=== PATIENT | female | born 1970 | race African-American/Black ===

== ENCOUNTER 2017-12-08 17:46 | Inpatient (IN) | payer MEDICARE, MEDICAID ==
[2017-12-08] MEDS ORDERED: Acetaminophen 500 MG TAB ONE (18:39)
[2017-12-08] MEDS ORDERED: Metoclopramide HCl 10 MG/2 ML VIAL ONE (19:35)
[2017-12-08] MEDS ORDERED: diphenhydrAMINE 50 MG/ML VIAL ONE (19:35)
--- NOTE | 2017-12-08 20:05 | CT ---
CT BRAIN NONCONTRAST: DATE: 12/08/17 TIME: 6:44 p.m. HISTORY: 47-year-old female with headache. COMPARISON: None available. FINDINGS: There is an old left lateral parietal solomon hole. There is a partially healed old left frontal bur hol e. No acute calvarial fracture or destructive osseous lesion. Bilateral tympanomastoid cavities and t he frontal, ethmoid, and sphenoid sinuses, are grossly clear. No evidence of acute intra-axial or ext ra-axial hemorrhage. No mass effect, midline shift, extra-axial fluid collection, or obstructive hydr ocephalus. Large, contiguous region of left parieto-occipitotemporal encephalomalacia in the left cer ebral hemisphere, and also involving a large portion of the left upper and mid frontal lobe. Associat ed ex vacuo dilation of the entire left lateral ventricle, especially the body, trigone, and occipita l horn. Mild ex vacuo dilation of third ventricle and mild ex vacuo right to left midline shift of th e third ventricle. No dilation of the right lateral ventricle or fourth ventricle. No acute intra-axi al hemorrhage. IMPRESSION: 1. No acute intracranial findings. 2. Large extensive regions of encephalomalacia and gliosis involving the majority of the left ce rebral hemisphere, from prior insult. 3. Two old left solomon holes. JOSE MARIA Turpin POS: [facility]
[2017-12-08 20:30] LABS: #Basophils 0.1 thou/uL (0.0-0.2); #Eosinphils 0.1 thou/uL (0.0-0.7); #Monocytes 0.7 thou/uL (0.11-0.59); #Neutrophils 4.3 thou/uL (1.40-6.50); %Eosinophils 1.2 % (0.0-10.0); %Lymphocytes 49.1 % (21.0-51.0); %Neutrophils 41.6 % (42.0-75.0); Hemoglobin 11.5 g/dL (12.0-16.0); Mean Corpuscular HGB CONC 30.6 g/dL (32.0-36.0); Mean Corpuscular Hemoglobin 25.1 pg (27.0-31.0); Mean Corpuscular Volume 82.2 fL (78.0-98.0); Platelet Count 283 thou/uL (130-400); RBC Distribution Width 17.7 % (11.5-14.5); Red Blood Cell (RBC) Count 4.58 mill/uL (4.20-5.40); White Blood Cell (WBC) Count 10.2 thou/uL (4.8-10.8)
[2017-12-08 20:49] LABS: Anion Gap 14 mmol/L (10-20); BUN (Urea Nitrogen) 17 mg/dL (7.0-18.7); Calc. Creatinine Clearance 0 mL/min (70-130); Calcium 9.2 mg/dL (7.8-10.44); Carbon Dioxide 28 mmol/L (22-29); Chloride 94 mmol/L (98-107); Estimated GFR-MDRD 48; Glucose 137 mg/dL (70-105); Potassium 4.1 mmol/L (3.5-5.1); Sodium 132 mmol/L (136-145)
[2017-12-08] MEDS ORDERED: methylPREDNISolone Sod Succ/PF 125 MG/2 ML VIAL ONE (23:30)
[2017-12-08] MEDS ORDERED: Magnesium Sulfate 2 GM/100 ML BAG ONE (23:30)
--- NOTE | 2017-12-09 00:09 | PDOC.FPRHP ---
- History of Present Illness Chief Complaint: headache History of Present Illness: This is a 47 yo F here for headache that has been occuring about 1 week. The patient has a significant PMH of previous strokes, cerebral aneurysm, residual hemiplegia, DM, GERD, and HLD. The patient states the headache has been intermittent, occurs "all over" her head, and is stabbing in nature. She states this headache is worse than previous headaches. She states the pain is a 5/10 and stated in the ED at its worse it is a 10/10 pain. The patient notes that she has had spots in her vision associated with the headache as well as nausea. She denies vomiting, fever, chest pain, SOB, abdominal pain, or diarrhea. The patient was somnolent on exam and therefore further hx was somewhat difficult to obtain. The patient is a resident at [facility]. ED Course: Patient given Mg, methylprednisolone, benadryl, tylenol, metoclopramide. LP attempted but unsuccessful. CT brain: 2 solomon holes, no acute bleed, evidence of encephalomalacia and gliosis. - Allergies/Adverse Reactions Allergies Allergy/AdvReac Type Severity Reaction Status Date / Time insulin lispro Allergy Verified 12/09/17 04:38 [From Humalog Mix] insulin lispro protamine Allergy Verified 12/09/17 04:38 [From Humalog Mix] - Home Medications Medication Instructions Recorded Confirmed Type Amlodipine Besylate/Benazepril 2 cap PO DAILY 12/09/17 12/09/17 History [amLODIPine Besylate/Benazepril] Atorvastatin Calcium [Lipitor] 1 tab PO HS 12/09/17 12/09/17 History DULoxetine HCl [Cymbalta] 1 cap PO HS 12/09/17 12/09/17 History Divalproex Sodium [Depakote ER] 1 tab PO BID 12/09/17 12/09/17 History Esomeprazole Magnesium [Nexium 2 cap PO DAILY 12/09/17 12/09/17 History 24Hr] Furosemide [Lasix] 1 tab PO DAILY 12/09/17 12/09/17 History Hydrochlorothiazide 1 tab PO DAILY 12/09/17 12/09/17 History Ibuprofen 2 tab PO Q4HR PRN 12/09/17 12/09/17 History Loratadine [Claritin] 1 tab PO DAILY 12/09/17 12/09/17 History Potassium Chloride 1 tab PO DAILY 12/09/17 12/09/17 History levETIRAcetam [Keppra] 1 tab PO BID 12/09/17 12/09/17 History metFORMIN HCl [Metformin HCl ER] 2 tab PO DAILY 12/09/17 12/09/17 History - History PMHx: cerebral aneurysm, acute gingivitis, GERD, bipolar, depression, vascular dementia, hx of stroke, DM, HTN PSHx: solomon hole FHx: non contributory Social: smokes cigarettes (unable to ascertain how many a day or for how long due to patient's somnolence), denies alcohol or drug use - Review of Systems General: denies: fever/chills, weight/appetite/sleep changes Eyes: reports: vision changes (spots in vision). denies: eye pain ENT: denies: nasal congestion, rhinorrhea Respiratory: denies: cough, shortness of breath Cardiovascular: denies: chest pain, palpitation, edema Gastrointestinal: reports: nausea. denies: vomiting, diarrhea, constipation, abdominal pain Genitourinary: denies: dysuria, polyuria Skin: denies: rashes, jaundice Musculoskeletal: denies: pain, swelling Neurological: reports: weakness (right sided). denies: syncope - Vital signs BP: 104/77 HR: 84 RR: 18 Tmax: 98.3 Pox: 99% on RA Wt: 72.6kg - Physical Exam -Constitutional: somnolent on exam, no distress HEENT: EOMI -HEENT: left pupil unreactive Chest: no-tender to palpation, no lesions Heart: RRR, normal S1/S2, no murmurs/rubs/gallops, pulses present, no edema Lungs: CTAB, no respiratory distress, good air movement, no wheezing Abdomen: soft, non-tender, bowel sounds present, no masses/distention -Musculoskeletal: right sided upper and lower extremity weakness; decreased sensation in right upper and lower extremity -Neurological: unable to complete full neuro exam due to patient somnolence sensation absent on right side Skin: no rash/lesions, no jaundice Heme/Lymphatic: no unusual bruising or bleeding, no petechia FMR H&P: Results - Labs Result Diagrams: 12/08/17 20:15 12/08/17 20:15 Lab results: WBC 10.2 thou/uL (4.8-10.8) 12/08/17 20:15 Hgb 11.5 g/dL (12.0-16.0) L 12/08/17 20:15 Hct 37.7 % (36.0-47.0) 12/08/17 20:15 MCV 82.2 fL (78.0-98.0) 12/08/17 20:15 Plt Count 283 thou/uL (130-400) 12/08/17 20:15 Neutrophils % 41.6 % (42.0-75.0) L 12/08/17 20:15 Sodium 132 mmol/L (136-145) L 12/08/17 20:15 Potassium 4.1 mmol/L (3.5-5.1) 12/08/17 20:15 Chloride 94 mmol/L (98-107) L 12/08/17 20:15 Carbon Dioxide 28 mmol/L (22-29) 12/08/17 20:15 BUN 17 mg/dL (7.0-18.7) 12/08/17 20:15 Creatinine 1.41 mg/dL (0.6-1.1) H 12/08/17 20:15 Glucose 137 mg/dL (70-105) H 12/08/17 20:15 Calcium 9.2 mg/dL (7.8-10.44) 12/08/17 20:15 FMR H&P: A/P - Problem List (1) Cerebral aneurysm Current Visit: Yes Status: Acute (2) Headache Current Visit: Yes Status: Acute Code(s): R51 - HEADACHE (3) Diabetes Current Visit: Yes Status: Acute Code(s): E11.9 - TYPE 2 DIABETES MELLITUS WITHOUT COMPLICATIONS (4) Hypertension Current Visit: Yes Status: Acute Code(s): I10 - ESSENTIAL (PRIMARY) HYPERTENSION (5) Hyperlipidemia Current Visit: Yes Status: Acute Code(s): E78.5 - HYPERLIPIDEMIA, UNSPECIFIED (6) GERD (gastroesophageal reflux disease) Current Visit: Yes Status: Acute Code(s): K21.9 - GASTRO-ESOPHAGEAL REFLUX DISEASE WITHOUT ESOPHAGITIS (7) Gingivitis Current Visit: Yes Status: Acute Code(s): K05.10 - CHRONIC GINGIVITIS, PLAQUE INDUCED (8) Bipolar 1 disorder Current Visit: Yes Status: Acute Code(s): F31.9 - BIPOLAR DISORDER, UNSPECIFIED (9) Depression Current Visit: Yes Status: Acute Code(s): F32.9 - MAJOR DEPRESSIVE DISORDER , SINGLE EPISODE, UNSPECIFIED (10) Vascular dementia Current Visit: Yes Status: Acute Code(s): F01.50 - VASCULAR DEMENTIA WITHOUT BEHAVIORAL DISTURBANCE (11) Hyponatremia Current Visit: Yes Status: Acute Code(s): E87.1 - HYPO-OSMOLALITY AND HYPONATREMIA (12) Normocytic anemia Current Visit: Yes Status: Acute Code(s): D64.9 - ANEMIA, UNSPECIFIED - Plan This is a 47 yo F here with headache occurring for the past 1 week, getting worked up to r/o SAH. Headache - likely 2/2 to tension headache, but unable to rule out SAH due to unsuccessful LP in the ED - CT brain: no acute bleed - Will schedule for IR guided LP tomorrow - consider CTA to visualize aneurysms - will need central line placed as IV access not sustainable for contrast - tylenol for pain - Will keep NPO until passed swallow study; if pass will start Consistent carb diet Hyponatremia - Na: 132 - Will give NS @ 125mls/hr - Will recheck BMP in AM Normocytic Anemia - Hb.5 - Will give ferrous sulfate 325 Qam - Will recheck CBC in AM Hx of cerebral aneurysm and stroke - Will obtain more information from fdc - consider CTA - pt on fall, swallow, seizure and stroke precautions DM - continue current home medications - ACHS checks HTN - continue home meds HLD - continue home meds Code status: FULL Dispo: pending results of LP Case discussed with Dr. Ruff FMR H&P: Upper Level - Pertinent history 47 yo female here for new onset DEL ROSARIO. Patient is poor historian and is difficult to rouse, but answers questions when we shake her arm. Patient history over the past couple weeks involves DEL ROSARIO that comes and goes, described as sharp sometimes , all over her head, 4 out of 10 pain scale. She has a medical history of aneurysm requiring 2 solomon holes. Also reports having 3 strokes in the past, but unable to describe how long ago. She reports current DEL ROSARIO episodes are different than in the past, but unable to further describe. She does not know who her doctors are. Apparently, patient is resident at [facility], PCP per paperwork is Jessica. Information shows medications and diagnosis history. No information about current clinical course. - Pertinent findings 104/77 HR: 84 Temp: 98.3 O2Sat:99% on RA RR: 18 Na: 132 Cr: 1.41 Glucose: 137 GEN: lethargic and difficult to rouse, Oriented x2 CARD: RRR, no m/g/r PULM: CTAB, nonlabored ABD: soft, nontender EXT: residual weakness on right side with contracture of right hand CT brain shows large extensive regions of encephalomalacia and gliosis involving the majority of the large cerebral hemisphere, no acute intracranial findings. Lumbar puncture: unable to be performed - Plan Date/Time: 12/09/17 0005 I, Albert Edgar DO, have evaluated this patient and agree with findings/plan as outlined by audit practice intern resident. Pertinent changes/additions are listed here. 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 Hypertension -appropriate range at this time -continue home meds Hemiplegia, right side -seems stable at this time per patient, however she is difficult to rouse and not fully participating in exam despite rousing; will reevaluate in the morning GRECIA -no baseline to confirm this is not simply her base level -will give LR at 125ml/hr -recheck in AM DMII, using insulin -continue home medications, Novolin N 18 units qHS, Novolin N 22u qAM -mild SSI -accuchecks qACHS Hx of TIA Bipolar disorder -continue home meds, depakote PVD Hyperlipidemia Attending Addendum - Attending Addendum Date/Time: 12/09/17 1107 I personally evaluated the patient and discussed the management with Dr. Orellana. I agree with the History, Examination, Assessment and Plan documented above with any addition or exceptions noted below. The patient was admitted with severe headache. She was initially quite somnolent but later this morning is awake and appears to be at baseline. She states her headache is improved. Getting LP today to rule out subarachnoid. Working with therapy. Getting UA to further evaluate altered mental status. Checking UDS.
[2017-12-09] MEDS ORDERED: Ondansetron ODT 4 MG TAB PO PRN (04:08)
[2017-12-09] MEDS ORDERED: Acetaminophen 325 MG TAB PO PRN (04:08)
[2017-12-09] MEDS ORDERED: Ondansetron HCl/PF 4 MG/2 ML Vial IVP PRN (04:08)
[2017-12-09] MEDS ORDERED: Ferrous Sulfate 325 MG TAB PO SCH (04:15)
[2017-12-09] MEDS: Sodium Chloride 0.9% 1,000 ML IV SCH ×2 (06:49→17:41)
[2017-12-09] MEDS ORDERED: Ibuprofen 200 MG TAB PO PRN (06:55)
[2017-12-09] MEDS ORDERED: HumaLOG 300 UNITS/3 ML VIAL SC PRN (08:35)
[2017-12-09] MEDS ORDERED: Dextrose 5% in Water 1,000 ML IV PRN (08:35)
[2017-12-09] MEDS ORDERED: Dextrose 50% Abboject 50 ML SYRINGE SLOW IVP PRN (08:35)
[2017-12-09] MEDS: metFORMIN XR 500 MG TAB PO SCH (08:52)
[2017-12-09] MEDS: Potassium Chloride 10 MEQ TAB PO SCH (08:52)
[2017-12-09] MEDS: Furosemide 20 MG TAB PO SCH (08:53)
[2017-12-09] MEDS: Amlodipine 5 mg/Benazepril 20 mg CAP PO SCH (08:53)
[2017-12-09] MEDS: Loratadine 10 MG TAB PO SCH (08:54)
[2017-12-09] MEDS: levETIRAcetam 500 MG TAB PO SCH ×2 (08:54→22:46)
[2017-12-09] MEDS ORDERED: Hydrochlorothiazide 25 MG TAB PO SCH (09:00)
[2017-12-09] MEDS ORDERED: ESOMEPRAZOLE MAGNESIUM PO SCH (09:00)
[2017-12-09] MEDS ORDERED: Lorazepam 0.5 MG TAB PO SCH (12:00)
[2017-12-09 12:36] VITALS: BMI 34.8
[2017-12-09] MEDS: NPH, Human Insulin Isophane 300 UNIT/3 ML VIAL SC SCH (13:55)
[2017-12-09 16:06] LABS: CSF Source CSF; Clarity Clear (Clear); RBC Count - Manual 2 /cumm (None Seen); Tube # 2; WBC/NonHematics Count - Manual 4 /cumm (0-5)
[2017-12-09 16:18] LABS: Color Of CSF Supernatant COLORLESS (Colorless); Tube # 3; Unspun CSF Color COLORLESS (Colorless)
[2017-12-09 16:19] LABS: CSF, Glucose 139 mg/dl (40-70); CSF, Protein 60 mg/dL (15-40)
[2017-12-09 16:57] LABS: CSF Source CSF; Clarity Clear (Clear); Tube # 4; WBC/NonHematics Count - Manual 1 /cumm (0-5)
[2017-12-09 16:58] LABS: RBC Count - Manual 12 /cumm (None Seen)
--- NOTE | 2017-12-09 18:06 | RAD ---
FLUOROSCOPIC GUIDED LUMBAR PUNCTURE: 12/09/17 HISTORY: Persistent headache rated as a 10 out of 10. FLUOROSCOPY: Total fluoroscopy time is 0.6 minutes and total dose is 162.5 uGy*m2. TECHNIQUE: After informed consent was obtained, the patient was placed on the fluoroscopy table in the prone pos ition. Limited fluoroscopic evaluation of the lumbar spine was performed. An area overlying the L2-3 level was marked, and the area was meticulously prepped and draped in the usual sterile fashion. Skin and subcutaneous tissues were infiltrated with buffered 1% lidocaine for local anesthesia. Utilizing fluoroscopic guidance, a 22 gauge spinal needle was advanced into the thecal sac. The inner stylet was removed, and return of clear cerebrospinal fluid was noted. Approximately 6 mL of clear c erebrospinal fluid was collected. An opening pressure of 9 cm of water was noted. The inner stylet was replaced. The needle was removed. Hemostasis was achieved with direct pressure. A dry sterile dressing was placed. The patient tolerated the procedure well without immediate complication. IMPRESSION: 1. Technically successful fluoroscopic guided lumbar puncture with 6 mL of clear cerebrospinal f luid collected. 2. Open spinal pressure of 9 cm of water was noted. 3. 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 Mild degenerative changes are seen in the spine. Bowel gas pattern is nonspecific. POS: [facility]
[2017-12-09] MEDS ORDERED: NPH, Human Insulin Isophane 300 UNIT/3 ML VIAL SC SCH ×2 (21:00→21:30)
[2017-12-09] MEDS: Atorvastatin Calcium 20 MG TAB PO SCH (22:46)
[2017-12-09] MEDS: DULoxetine 60 MG CAP PO SCH (22:46)
[2017-12-09] MEDS: Nicotine 21 MG PATCH TD SCH (22:47)
--- NOTE | 2017-12-10 06:42 | PDOC.FM ---
- Subjective Subjective: Pt. reports feeling better this morning. She reports a minor headache but denies N/V. - Objective MAR Reviewed: Yes Vital Signs & Weight: Vital Signs (12 hours) Temp Pulse Resp BP Pulse Ox 12/10/17 04:00 99 F 94 14 107/55 L 100 12/09/17 23:51 92 14 104/55 L 100 12/09/17 20:30 100 12/09/17 20:00 98.5 F 94 16 111/59 L 100 Weight Admit Weight 107.048 kg Weight 107.048 kg Result Diagrams: 12/08/17 20:15 12/10/17 07:12 <JonnyRolan - Last Filed: 12/10/17 09:28> - Objective Vital Signs & Weight: Vital Signs (12 hours) Temp Pulse Resp BP Pulse Ox 12/10/17 11:30 98.6 F 82 16 90/53 L 100 12/10/17 08:17 99 12/10/17 08:00 98.9 F 100 20 110/71 99 12/10/17 04:00 99 F 94 14 107/55 L 100 Weight Admit Weight 107.048 kg Weight 107.048 kg Result Diagrams: 12/08/17 20:15 12/10/17 07:12 <Adeline Ruff - Last Filed: 12/10/17 15:46> Phys Exam - Physical Examination Constitutional: NAD HEENT: moist MMs Neck: no JVD Respiratory: no wheezing, clear to auscultation bilateral Cardiovascular: RRR, no significant murmur Gastrointestinal: soft, non-tender, no distention Neurological: moves all 4 limbs Psychiatric: A&O x 3 <Rolan Fuller - Last Filed: 12/10/17 09:28> Dx/Plan (1) Bipolar 1 disorder Code(s): F31.9 - BIPOLAR DISORDER, UNSPECIFIED Status: Acute (2) Cerebral aneurysm Status: Acute (3) Depression Code(s): F32.9 - MAJOR DEPRESSIVE DISORDER, SINGLE EPISODE, UNSPECIFIED Status : Acute (4) Diabetes Code(s): E11.9 - TYPE 2 DIABETES MELLITUS WITHOUT COMPLICATIONS Status: Acute (5) GERD (gastroesophageal reflux disease) Code(s): K21.9 - GASTRO-ESOPHAGEAL REFLUX DISEASE WITHOUT ESOPHAGITIS Status: Acute (6) Gingivitis Code(s): K05.10 - CHRONIC GINGIVITIS, PLAQUE INDUCED Status: Acute (7) Headache Code(s): R51 - HEADACHE Status: Acute (8) Hyperlipidemia Code(s): E78.5 - HYPERLIPIDEMIA, UNSPECIFIED Status: Acute (9) Hypertension Code(s): I10 - ESSENTIAL (PRIMARY) HYPERTENSION Status: Acute (10) Hyponatremia Code(s): E87.1 - HYPO-OSMOLALITY AND HYPONATREMIA Status: Acute (11) Normocytic anemia Code(s): D64.9 - ANEMIA, UNSPECIFIED Status: Acute (12) Vascular dementia Code(s): F01.50 - VASCULAR DEMENTIA WITHOUT BEHAVIORAL DISTURBANCE Status: Acute - Plan Plan: This is a 47 yo female with a PMH of HTN, DM, HLD, Vascular dementia, cerebral aneurysm, GERD, Bipolar 1 Headache -Likely tension headache as CT brain is negative for acute bleed however the IR guided LP shows 2 RBCs in tube 2 and 12 in tube 4 which is concerning for a small bleed. We will correlate this information with clinical picture moving forward. We discussed pt care with Vanessa KING with neurosurgery and she recommended CTA of head w wo and would take a look at the case. We will be pending results. Hyponatremia -NA:132 on admission, we will trend. Normocytic anemia -Hb.5 on admission, MCV was 82.2. We will continue ferrous sulfate 325 qAM Hx of cerebral aneurysm and stroke -Will obtain CTA. Pt. is on fall, swallow, seizure, and stroke precautions DM -Continue home meds, ACHS accuchecks, SSI HTN -Continue home meds HLD -Continue home meds Code: Full Prophylaxis: none Family: none at bedside Disposition: NH in 1-2 days <Rolan Fuller - Last Filed: 12/10/17 09:28> (1) Cerebral aneurysm Status: Acute (2) Headache Code(s): R51 - HEADACHE Status: Acute (3) Diabetes Code(s): E11.9 - TYPE 2 DIABETES MELLITUS WITHOUT COMPLICATIONS Status: Acute (4) Hypertension Code(s): I10 - ESSENTIAL (PRIMARY) HYPERTENSION Status: Acute (5) Hyperlipidemia Code(s): E78.5 - HYPERLIPIDEMIA, UNSPECIFIED Status: Acute (6) GERD (gastroesophageal reflux disease) Code(s): K21.9 - GASTRO-ESOPHAGEAL REFLUX DISEASE WITHOUT ESOPHAGITIS Status: Acute (7) Gingivitis Code(s): K05.10 - CHRONIC GINGIVITIS, PLAQUE INDUCED Status: Acute (8) Bipolar 1 disorder Code(s): F31.9 - BIPOLAR DISORDER, UNSPECIFIED Status: Acute (9) Depression Code(s): F32.9 - MAJOR DEPRESSIVE DISORDER, SINGLE EPISODE, UNSPECIFIED Status : Acute (10) Vascular dementia Code(s): F01.50 - VASCULAR DEMENTIA WITHOUT BEHAVIORAL DISTURBANCE Status: Acute (11) Hyponatremia Code(s): E87.1 - HYPO-OSMOLALITY AND HYPONATREMIA Status: Acute (12) Normocytic anemia Code(s): D64.9 - ANEMIA, UNSPECIFIED Status: Acute <Adeline Ruff - Last Filed: 12/10/17 15:46> Attending Addendum - Attending Addendum Date/Time: 12/10/17 0845 I personally evaluated the patient and discussed the management with Dr. Fuller. I agree with the History, Examination, Assessment and Plan documented above with any addition or exceptions noted below. Pt did have blood in CSF. Consulting neurosurgery and getting CTA head. Pt has been up ambulating in her wound and notes she a mild headache which is better than when she first arrived. <Adeline Ruff - Last Filed: 12/10/17 15:46>
[2017-12-10 07:36] LABS: Anion Gap 10 mmol/L (10-20); BUN (Urea Nitrogen) 18 mg/dL (7.0-18.7); Calc. Creatinine Clearance 100 mL/min (70-130); Calcium 9.2 mg/dL (7.8-10.44); Carbon Dioxide 28 mmol/L (22-29); Chloride 102 mmol/L (98-107); Estimated GFR-MDRD 59; Glucose 193 mg/dL (70-105); Potassium 3.8 mmol/L (3.5-5.1); Sodium 136 mmol/L (136-145)
[2017-12-10] MEDS: NPH, Human Insulin Isophane 300 UNIT/3 ML VIAL SC SCH (08:16)
[2017-12-10] MEDS: Potassium Chloride 10 MEQ TAB PO SCH (08:17)
[2017-12-10] MEDS: Furosemide 20 MG TAB PO SCH (08:18)
[2017-12-10] MEDS: Loratadine 10 MG TAB PO SCH (08:18)
[2017-12-10] MEDS: metFORMIN XR 500 MG TAB PO SCH (08:18)
[2017-12-10] MEDS: Amlodipine 5 mg/Benazepril 20 mg CAP PO SCH (08:19)
[2017-12-10] MEDS: levETIRAcetam 500 MG TAB PO SCH ×2 (08:19→23:44)
[2017-12-10] MEDS: Ferrous Sulfate 325 MG TAB PO SCH (08:19)
[2017-12-10] MEDS: Polyethylene Glycol 3350 17 GM Packet PO SCH (09:20)
[2017-12-10] MEDS ORDERED: ISOVUE-370 76%-LOCM 1 ML ONE (10:44)
--- NOTE | 2017-12-10 10:52 | CON-2 ---
DATE OF CONSULTATION: 12/10/2017 DATE OF ADMISSION: 12/08/2017 ATTENDING PHYSICIAN: Lev German M.D. HISTORY OF PRESENT ILLNESS: The patient is a 47-year-old -[place] female with a past medical history of multiple prior CVAs with residual right- sided weakness and cognitive deficits, cerebral aneurysm, diabetes, hypertension , hyperlipidemia, bipolar disorder, depression, vascular dementia who presented to the emergency room last night for headache x1 week. She describes a gradual onset of a global headache. She reports that this headache is worse than prior headaches. This is associated with some photophobia as well as nausea. She denies any new or worsening weakness or vision changes. The history is slightly limited by her chronic memory issues and cognitive issues. The patient is a resident at [facility]. On arrival to the ER, she was evaluated with noncontrast CT of the head which was notable for extensive encephalomalacia from her prior infarcts and solomon holes postoperative changes also from her prior injury. No acute intracranial findings or hemorrhages appreciated. However, considering the patient's history of aneurysm and worsening headaches, she was admitted to the medicine service for further evaluation of these symptoms. She underwent lumbar puncture which was notable for small amount of RBCs. Neurosurgery service was consulted for possible underlying subarachnoid hemorrhage. PAST MEDICAL HISTORY: Multiple prior CVAs with residual right-sided weakness and some cognitive deficits, chronic headaches, hypertension, hyperlipidemia, diabetes, GERD, bipolar disorder, depression, vascular dementia, anemia. PAST SURGICAL HISTORY: [place] hole. FAMILY HISTORY: Noncontributory. SOCIAL HISTORY: The patient lives at the [facility]. She does not smoke or use any drugs. REVIEW OF SYSTEMS: Per HPI. PHYSICAL EXAMINATION: Seen patient in the room. VITAL SIGNS: Temperature is 98.9, heart rate is 100, respirations 20, she is 99 % on room air, BP is 110/71. CONSTITUTIONAL: Awake, alert, no acute distress. She is oriented to person and place. HEAD: Normocephalic, atraumatic. Slight left-sided facial droop. EYES: PERRLA. Extraocular movements intact. ENT: Oral mucosa is pink, intact and moist. She has normal voice. NECK: Nontender to palpation. Free active range of motion, no meningismus or nuchal rigidity. CARDIAC: Regular rate and rhythm. LUNGS: She is breathing comfortably with symmetric chest expansion, no evidence of dyspnea. MUSCULOSKELETAL: She has right-sided weakness on my exam in the upper and lower extremity 4-/5 throughout. She also has decreased sensation to light touch over the right lower extremity. She has 5/5 strength and decreased sensation on the left side. NEUROLOGIC: Oriented to person and place, residual right-sided deficits as noted above. This is unchanged for the patient. ASSESSMENT AND PLAN: Neurosurgery has been asked to evaluate the patient with history of multiple prior cerebrovascular accidents and aneurysm who presented for 1 week of worsening headache. Her initial CT noncontrast head was negative for any acute hemorrhage. She did undergo LP which notable for RBCs. At this time, I am recommending further evaluation in the patient with CTA of the head. Once this complete, we will review these images to determine if NS intervention is required. ANGIE
[2017-12-10 12:17] LABS: Pregnancy Test - Urine (BHCG) Negative (Negative); Pregu Control Background? CLEAR/WHITE (CLR/WHITE); Pregu Control Bar Appear? YES (CONTROL BAR); Specific Gravity 1.016 (1.002-1.036)
--- NOTE | 2017-12-10 13:31 | CT ---
NONCONTRAST ENHANCED CT IMAGES BRAIN: INTRACRANIAL CTA: 12/10/2017 HISTORY: Headache. Right side deficit. History of stroke. FINDINGS: Noncontrast enhanced CT images of the brain demonstrate a large left parietal, occipital, and tempora l occipital area of stroke, compatible with an old left RN CHILD distribution area of stroke. No evidence of acute intracranial hemorrhage is seen. The left internal carotid artery, in the petrous and cavernous portions, is significantly smaller froylan n the right. Flow is seen in the left MCA vessels. The left A1 segment of the anterior cerebral art peyton is hypoplastic or occluded. Flow is seen via the right internal carotid artery, into the right A 1 segment, across the anterior communicating artery and into the right and left A2 and more distal an terior cerebral branches. There is a wide neck, approximately 4 mm aneurysm in the distal-most aspect of the right ICA, where i t bifurcates into the right LINDA and MCA vessels, at the origin of the right MCA. More distally, flow is seen in the right MCA branches. The right and left vertebral arteries are unremarkable but patent. Flow is seen in the right and lef t posterior communicating arteries. The right and left superior cerebellar arteries are visualized a nd are patent. The right posterior cerebral artery is visualized. The left is not visualized and may be occluded. This correlates with a left RN CHILD distribution area of stroke IMPRESSION: 1. Old left posterior cerebral artery distribution area of stroke. 2. A 4 mm right distal-most aspect internal carotid artery and proximal-most aspect right middle cer ebral artery area of aneurysmal dilatation. POS: [facility]
[2017-12-10] MEDS ORDERED: NPH, Human Insulin Isophane 300 UNIT/3 ML VIAL SC SCH (21:00)
[2017-12-10] MEDS: Nicotine 21 MG PATCH TD SCH (23:33)
[2017-12-10] MEDS: Atorvastatin Calcium 20 MG TAB PO SCH (23:43)
[2017-12-10] MEDS: DULoxetine 60 MG CAP PO SCH (23:43)
--- NOTE | 2017-12-11 05:36 | PDOC.FM ---
- Subjective Subjective: Pt. has no complaints this morning. She denies headache, cp, sob, or abdominal pain. - Objective MAR Reviewed: Yes Vital Signs & Weight: Vital Signs (12 hours) Temp Pulse Resp BP Pulse Ox 12/11/17 04:00 98.6 F 77 18 99/56 L 93 L 12/11/17 00:00 98.8 F 83 18 116/67 100 12/10/17 20:25 100 12/10/17 20:00 98.2 F 77 18 102/58 L 100 Weight Admit Weight 107.048 kg Weight 107.048 kg Result Diagrams: 12/08/17 20:15 12/10/17 07:12 <Rolan Fuller - Last Filed: 12/11/17 09:22> - Objective Vital Signs & Weight: Vital Signs (12 hours) Temp Pulse Pulse Pulse Resp BP BP 12/11/17 08:50 92 84 107/56 L 111/59 L 12/11/17 08:00 98.4 F 77 18 BP Pulse Ox 12/11/17 08:50 12/11/17 08:00 101/56 L 96 Weight Admit Weight 107.048 kg Weight 106.685 kg Result Diagrams: 12/08/17 20:15 12/10/17 07:12 <Adeline Ruff - Last Filed: 12/11/17 16:26> Phys Exam - Physical Examination Constitutional: NAD HEENT: moist MMs Neck: no JVD Respiratory: no wheezing, clear to auscultation bilateral Cardiovascular: RRR, no significant murmur Gastrointestinal: soft, non-tender, no distention, positive bowel sounds Musculoskeletal: no edema, pulses present Neurological: non-focal, moves all 4 limbs Psychiatric: A&O x 3 <Rolan Fuller - Last Filed: 12/11/17 09:22> Dx/Plan (1) Bipolar 1 disorder Code(s): F31.9 - BIPOLAR DISORDER, UNSPECIFIED Status: Acute (2) Cerebral aneurysm Status: Acute (3) Depression Code(s): F32.9 - MAJOR DEPRESSIVE DISORDER, SINGLE EPISODE, UNSPECIFIED Status : Acute (4) Diabetes Code(s): E11.9 - TYPE 2 DIABETES MELLITUS WITHOUT COMPLICATIONS Status: Acute (5) GERD (gastroesophageal reflux disease) Code(s): K21.9 - GASTRO-ESOPHAGEAL REFLUX DISEASE WITHOUT ESOPHAGITIS Status: Acute (6) Gingivitis Code(s): K05.10 - CHRONIC GINGIVITIS, PLAQUE INDUCED Status: Acute (7) Headache Code(s): R51 - HEADACHE Status: Acute (8) Hyperlipidemia Code(s): E78.5 - HYPERLIPIDEMIA, UNSPECIFIED Status: Acute (9) Hypertension Code(s): I10 - ESSENTIAL (PRIMARY) HYPERTENSION Status: Acute (10) Hyponatremia Code(s): E87.1 - HYPO-OSMOLALITY AND HYPONATREMIA Status: Acute (11) Normocytic anemia Code(s): D64.9 - ANEMIA, UNSPECIFIED Status: Acute (12) Vascular dementia Code(s): F01.50 - VASCULAR DEMENTIA WITHOUT BEHAVIORAL DISTURBANCE Status: Acute - Plan Plan: This is a 47 yo female with a PMH of HTN, DM, HLD, Vascular dementia, cerebral aneurysm, GERD, Bipolar 1 Headache -Likely tension headache as CT brain is negative for acute bleed however the IR guided LP shows 2 RBCs in tube 2 and 12 in tube 4 which is concerning for a small bleed. We will correlate this information with clinical picture moving forward. We discussed pt care with Vanessa KING with neurosurgery and she recommended CTA of head w wo and would take a look at the case. 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 No sign of SAH. Neurosurgery does not recommend any surgery at this time and will focus on conservative management. Pt. will likely be discharged today based on their recommendations. They will arrange 3 month follow up CTA. Hyponatremia -136 on 12/10 Normocytic anemia -Hb.5 on admission, MCV was 82.2. We will continue ferrous sulfate 325 qAM Hx of cerebral aneurysm and stroke -Current aneurysm as noted above DM -Continue home meds, ACHS accuchecks, SSI HTN -Continue home meds HLD -Continue home meds Code: Full Prophylaxis: none Family: none at bedside Disposition: NH in 1-2 days <Rolan Fuller - Last Filed: 12/11/17 09:22> (1) Cerebral aneurysm Status: Acute (2) Headache Code(s): R51 - HEADACHE Status: Acute (3) Diabetes Code(s): E11.9 - TYPE 2 DIABETES MELLITUS WITHOUT COMPLICATIONS Status: Acute (4) Hypertension Code(s): I10 - ESSENTIAL (PRIMARY) HYPERTENSION Status: Acute (5) Hyperlipidemia Code(s): E78.5 - HYPERLIPIDEMIA, UNSPECIFIED Status: Acute (6) GERD (gastroesophageal reflux disease) Code(s): K21.9 - GASTRO-ESOPHAGEAL REFLUX DISEASE WITHOUT ESOPHAGITIS Status: Acute (7) Gingivitis Code(s): K05.10 - CHRONIC GINGIVITIS, PLAQUE INDUCED Status: Acute (8) Bipolar 1 disorder Code(s): F31.9 - BIPOLAR DISORDER, UNSPECIFIED Status: Acute (9) Depression Code(s): F32.9 - MAJOR DEPRESSIVE DISORDER, SINGLE EPISODE, UNSPECIFIED Status : Acute (10) Vascular dementia Code(s): F01.50 - VASCULAR DEMENTIA WITHOUT BEHAVIORAL DISTURBANCE Status: Acute (11) Hyponatremia Code(s): E87.1 - HYPO-OSMOLALITY AND HYPONATREMIA Status: Acute (12) Normocytic anemia Code(s): D64.9 - ANEMIA, UNSPECIFIED Status: Acute <Adeline Ruff - Last Filed: 12/11/17 16:26> Attending Addendum - Attending Addendum Date/Time: 12/11/17 0625 I personally evaluated the patient and discussed the management with Dr. Fuller. I agree with the History, Examination, Assessment and Plan documented above with any addition or exceptions noted below. The patient is feeling better. She notes improvement of headache. Pt's sister at bedside and updated on plan. Neurosurgery reviewed images and will closely monitor the small aneurysm. She will be discharged. <Adeline Ruff - Last Filed: 12/11/17 16:26>
[2017-12-11 08:20] VITALS: TEMP 98.4
[2017-12-11] MEDS: metFORMIN XR 500 MG TAB PO SCH (08:23)
[2017-12-11] MEDS: Potassium Chloride 10 MEQ TAB PO SCH (08:23)
[2017-12-11] MEDS: levETIRAcetam 500 MG TAB PO SCH (08:23)
[2017-12-11] MEDS: Furosemide 20 MG TAB PO SCH (08:23)
[2017-12-11] MEDS: Loratadine 10 MG TAB PO SCH (08:23)
[2017-12-11] MEDS: Amlodipine 5 mg/Benazepril 20 mg CAP PO SCH (08:24)
[2017-12-11] MEDS: Ferrous Sulfate 325 MG TAB PO SCH (08:24)
[2017-12-11] MEDS: NPH, Human Insulin Isophane 300 UNIT/3 ML VIAL SC SCH (08:24)
[2017-12-11] MEDS: Polyethylene Glycol 3350 17 GM Packet PO SCH (08:25)
--- NOTE | 2017-12-11 08:28 | PRG ---
DATE OF SERVICE: 12/11/2017 The patient was seen and examined, agree with Vanessa Ferrari PA-C's evaluation, 12/10/2017. The patient is a 47-year-old woman, highly disabled and in a mcc from previous intracranial events. Records are not available to me, but she clearly has had a large left-sided stroke, and acco rding to the sister, has a history of prior aneurysm. She was admitted with 1 week of headache that was initially quite severe, but has now largely improved. A head CT was negative. An LP was performed that, in my opinion, is equivocal for evidence of subara chnoid hemorrhage. There was no xanthochromia and the glucose and protein were slightly elevated. T here were 2 red cells on tube 1 and 12 red cells on tube 4. These findings are slightly suggestive o f possible subarachnoid hemorrhage, but not compelling. On CT angiogram, the patient has a tiny potential aneurysm of the right ICA terminus. ASSESSMENT AND PLAN: Overall, the situation is ambiguous. It is possible she has had a sentinel hem orrhage, but the findings are not afar from definitive. The potential intracranial aneurysm is also uncertain, and if they were a true aneurysm, it would not likely be treatable with coiling or convent ional clipping given its tiny size. I would recommend conservative management with discharge when symptomatically able. No specific sandee tment is indicated. I will arrange for a 3-month followup CT angiogram.
[2017-12-11 11:38] VITALS: BP 107/56
--- NOTE | 2017-12-13 04:54 | DIS-2 ---
DATE OF ADMISSION: 12/08/2017 DATE OF DISCHARGE: 12/11/2017 RESIDENT: Rolan Fuller DO ADMITTING ATTENDING: Dr. Adeline Ruff. DISCHARGE ATTENDING: Dr. Adeline Ruff. CONSULTATIONS: Neurosurgery, Dr. German. PROCEDURES: CT angiogram of head with contrast showing old left posterior cerebral arterial distribu tion stroke, 4-mm right distal most aspect internal carotid artery, proximal middle right cereb ral artery area of aneurysmal dilation, fluoroscopy-guided LP. Brain CT noncontrast showed no acute intracranial findings. PRIMARY DIAGNOSIS: Tension headache. SECONDARY DIAGNOSES: History of cerebral aneurysms, type 2 diabetes, hypertension, vascular dementia , history of transient ischemic attack/stroke, bipolar disease. DISCHARGE MEDICATIONS: 1. Amlodipine/benazepril 5 and 20 mg capsule 2 caps p.o. daily. 2. Atorvastatin 20 mg p.o. at bedtime. 3. Depakote 500 mg p.o. b.i.d. 4. Cymbalta 1 capsule p.o. at bedtime. 5. Omeprazole 20 mg two caps daily. 6. Furosemide 20 mg p.o. daily. 7. Ibuprofen 200 mg 2 tabs q.4 hours p.r.n. pain. 8. Keppra 500 mg p.o. b.i.d. 9. Loratadine 10 mg p.o. daily. 10. Metformin 2 tabs p.o. daily. 11. Metoprolol 25 mg p.o. daily. 12. Humulin 22 units subcutaneous daily, 18 units at bedtime. 13. MiraLax 1 packet p.o. daily. 14. Potassium 10 mEq p.o. daily. DISCHARGE DISCONTINUED MEDICATIONS: None. HISTORY OF PRESENT ILLNESS AND HOSPITAL COURSE: This is a 47-year-old female who was transferred to the ER due to difficult spinal Tap. Patient has history of aneurysm. There was concern for subarach noid hemorrhage. Patient was brought here and admitted for LP. Patient tolerated the procedur e well. Her Surgery was consulted and was not concerned about LP or CT angiogram, CTA of head and th e patient was discharged. DISPOSITION: Stable. DISCHARGE INSTRUCTIONS: 1. Location: Home. 2. Diet: Regular. 3. Activity: As tolerated. 4. Follow up with primary care physician in 1-[address] German in 1-2 weeks.
[2017-12-13 19:11] LABS: HSV 2 - DNA Negative (Negative)
== END 2017-12-11 15:34 | DRG 103 ==
LOC: ERS 17:46 → 2SE 23:00 → OBSVTOIN 23:47
PROVIDERS: ADMIT Family Medicine; ATTEND Family Medicine
PROC: 009U3ZX Drainage of Spinal Canal, Percutaneous Approach, Diagnostic (ICD-10-PCS; principal; 2017-12-09)
PROC: B01B1ZZ Fluoroscopy of Spinal Cord using Low Osmolar Contrast (ICD-10-PCS; 2017-12-09)
DX: G44.209 Tension-type headache, unspecified, not intractable (principal); E87.1 Hypo-osmolality and hyponatremia; I69.351 Hemiplegia and hemiparesis following cerebral infarction affecting right dominant side; N17.9 Acute kidney failure, unspecified; K21.9 Gastro-esophageal reflux disease without esophagitis; E78.5 Hyperlipidemia, unspecified; F31.9 Bipolar disorder, unspecified; F01.50 Vascular dementia, unspecified severity, without behavioral disturbance, psychotic disturbance, mood disturbance, and anxiety; K05.10 Chronic gingivitis, plaque induced; D64.9 Anemia, unspecified; G93.89 Other specified disorders of brain; E11.51 Type 2 diabetes mellitus with diabetic peripheral angiopathy without gangrene; Z79.4 Long term (current) use of insulin
CPT/HCPCS: 36415; 36416; 62270; 70450; 70496; 80048; 81025; 82945; 84157; 85025; 87070; 87205; 87529; 89051; 96361; 96365; 96367; 96375; A4216; G8978-GP-CK; G8979-GP-CI; G8987-GO-CJ; G8988-GO-CI; G9162-GN-CJ; G9163-GN-CJ; J1200; J1815; J2765; J2930; J3475

== ENCOUNTER 2022-11-04 02:12 | Inpatient (IN) | payer MEDICARE, MEDICAID ==
[2022-11-04] MEDS ORDERED: Vancomycin 1 GM/200 ML (FROZEN) BAG ONE (03:06)
[2022-11-04] MEDS ORDERED: Cefepime 2 GM VIAL ONE (03:06)
[2022-11-04 03:22] LABS: #Basophils 0.1 thou/uL (0.0-0.2); #Monocytes 1.4 thou/uL (0.11-0.59); #Neutrophils 19.9 thou/uL (1.40-6.50); %Basophils 0.3 % (0.0-1.0); %Lymphocytes 8.9 % (21.0-51.0); %Monocytes 5.8 % (0.0-10.0); %Neutrophils 83.7 % (42.0-75.0); Hematocrit 44.9 % (36.0-47.0); Hemoglobin 14.2 g/dL (12.0-16.0); Mean Corpuscular HGB CONC 31.6 g/dL (32.0-36.0); Mean Corpuscular Hemoglobin 27.6 pg (27.0-31.0); Mean Corpuscular Volume 87.2 fl (78.0-98.0); Mean Platelet Volume 9.7 fL (7.4-10.4); Platelet Count 218 10x3/uL (130-400); RBC Distribution Width 14.8 % (11.5-14.5); Red Blood Cell (RBC) Count 5.15 mill/uL (4.20-5.40); White Blood Cell (WBC) Count 23.8 10x3/uL (4.8-10.8)
[2022-11-04 03:48] LABS: Troponin I Less than 0.010 ng/mL (< 0.028)
[2022-11-04 03:52] LABS: ALT (SGPT) 52 U/L (8-55); AST (SGOT) 50 U/L (5-34); Albumin 3.4 g/dL (3.5-5.0); Alkaline Phosphatase 79 U/L (40-110); Anion Gap 15 mmol/L (10-20); BUN (Urea Nitrogen) 13 mg/dL (9.8-20.1); Bilirubin, Total 0.4 mg/dL (0.2-1.2); Calc. Creatinine Clearance 0 mL/min (70-130); Calcium 9.1 mg/dL (7.8-10.44); Carbon Dioxide 21 mmol/L (22-29); Chloride 100 mmol/L (98-107); Estimated GFR 47; Globulin 2.8 g/dL (2.4-3.5); Glucose 262 mg/dL (70-105); Potassium 4.3 mmol/L (3.5-5.1); Protein, Total 6.2 g/dL (6.0-8.3); Sodium 132 mmol/L (136-145)
[2022-11-04 04:26] LABS: Bilirubin Negative (Negative); Blood, Urine 1+ (Negative); CAUTI Indications for Culture Alt mental st,lethar; Clarity Turbid (Clear); Glucose, Urine (Dipstick) Normal (Negative); Ketone, Urine Negative (Negative); Leukocyte 75 Leu/uL (Negative); Nitrite Negative (Negative); Protein, Urine (Dipstick) 30 mg/dL (Neg-Trace); RBC/HPF 21-50 HPF (0-3); Specific Gravity, Urine 1.023 (1.002-1.036); Urobilinogen Normal mg/dL (Less than 2); Yeast-Budding 4+ HPF (None Seen); pH, Urine 5.5 (5.0-9.0)
[2022-11-04 04:27] LABS: Bacteria/HPF 1+ HPF (None Seen)
[2022-11-04 04:28] LABS: Urine Culture Reflex No No
[2022-11-04 04:43] LABS: SARS-CoV-2 NAA Rapid Test Not Detected (NotDetected)
[2022-11-04] MEDS ORDERED: Calcium Carbonate 500 MG ChewTAB PO PRN (06:09)
[2022-11-04] MEDS ORDERED: Glucagon 1 MG/ML KIT IM PRN (06:09)
[2022-11-04] MEDS ORDERED: HumaLOG 300 UNITS/3 ML VIAL SC PRN ×2 (06:09)
[2022-11-04] MEDS ORDERED: Ondansetron ODT 4 MG TAB PO PRN (06:09)
[2022-11-04] MEDS ORDERED: Dextrose 5% in Water 1,000 ML IV PRN (06:09)
[2022-11-04] MEDS ORDERED: Senokot S 8.6-50 MG TAB PO PRN (06:09)
[2022-11-04] MEDS ORDERED: Dextrose 50% Abboject 50 ML SYRINGE SLOW IVP PRN (06:09)
[2022-11-04 06:16] LABS: Lactic Acid 1.9 mmol/L (0.5-2.2)
[2022-11-04 12:26] VITALS: BMI 44.2
[2022-11-04] MEDS: Fluconazole 100 MG TAB PO SCH (12:27)
[2022-11-04] MEDS: Famotidine 20 MG TAB PO SCH ×2 (12:37→20:00)
[2022-11-04] MEDS ORDERED: Vancomycin 1 GM in Premix Bag 1 BAG IVPB SCH (12:45)
[2022-11-04] MEDS: Insulin Regular 300 UNITS/3 ML VIAL SC PRN ×2 (17:03→20:10)
[2022-11-04] MEDS: Acetaminophen 325 MG TAB PO PRN (19:59)
[2022-11-04] MEDS: Cefepime 1 GM in Sodium Chloride 0.9% 100 ML IVPB SCH (20:00)
[2022-11-04] MEDS ORDERED: Vancomycin 1.5 GRAM/300 ML BAG 1.5 GM in Premix Bag 1 BAG IVPB SCH (21:00)
[2022-11-05] MEDS ORDERED: Vancomycin HCl 750 MG in Sodium Chloride 0.9% 250 ML 250 ML IVPB SCH (02:00)
[2022-11-05 06:24] LABS: #Eosinphils 0.1 thou/uL (0.0-0.7); #Monocytes 1.3 thou/uL (0.11-0.59); #Neutrophils 14.4 thou/uL (1.40-6.50); %Basophils 0.2 % (0.0-1.0); %Eosinophils 0.4 % (0.0-10.0); %Lymphocytes 10.4 % (21.0-51.0); %Monocytes 7.5 % (0.0-10.0); %Neutrophils 80.8 % (42.0-75.0); Hematocrit 42.3 % (36.0-47.0); Hemoglobin 13.5 g/dL (12.0-16.0); Mean Corpuscular HGB CONC 31.9 g/dL (32.0-36.0); Mean Corpuscular Hemoglobin 27.7 pg (27.0-31.0); Mean Corpuscular Volume 86.9 fl (78.0-98.0); Platelet Count 201 10x3/uL (130-400); RBC Distribution Width 14.9 % (11.5-14.5); Red Blood Cell (RBC) Count 4.87 mill/uL (4.20-5.40); White Blood Cell (WBC) Count 17.9 10x3/uL (4.8-10.8)
[2022-11-05 06:51] LABS: Anion Gap 15 mmol/L (10-20); BUN (Urea Nitrogen) 10 mg/dL (9.8-20.1); Calc. Creatinine Clearance 129 mL/min (70-130); Calcium 9.4 mg/dL (7.8-10.44); Carbon Dioxide 22 mmol/L (22-29); Chloride 100 mmol/L (98-107); Estimated GFR 63; Glucose 282 mg/dL (70-105); Sodium 133 mmol/L (136-145)
[2022-11-05] MEDS: Insulin Regular 300 UNITS/3 ML VIAL SC PRN ×2 (06:51→17:59)
[2022-11-05] MEDS: Famotidine 20 MG TAB PO SCH ×2 (08:29→20:27)
[2022-11-05] MEDS: Fluconazole 100 MG TAB PO SCH (08:30)
[2022-11-05] MEDS: Cefepime 1 GM in Sodium Chloride 0.9% 100 ML IVPB SCH (08:52)
[2022-11-05] MEDS: Insulin Glargine 30 UNITS/0.3 ML VIAL SC SCH ×2 (08:55→20:27)
[2022-11-05] MEDS: Acetaminophen 325 MG TAB PO PRN ×2 (08:55→21:46)
[2022-11-05] MEDS: DULoxetine 30 MG CAP PO SCH (08:56)
[2022-11-05] MEDS: Furosemide 40 MG TAB PO SCH (08:56)
[2022-11-05] MEDS: levETIRAcetam 500 MG TAB PO SCH ×2 (08:56→20:26)
[2022-11-05] MEDS: Lisinopril 20 MG TAB PO SCH (08:56)
[2022-11-05] MEDS: Polyethylene Glycol 3350 17 GM Packet PO SCH (08:57)
[2022-11-05] MEDS: Cefepime 2 GM in Sodium Chloride 0.9% 100 ML IVPB SCH (20:26)
[2022-11-05] MEDS: Atorvastatin Calcium 20 MG TAB PO SCH (20:27)
[2022-11-06] MEDS: Insulin Regular 300 UNITS/3 ML VIAL SC PRN ×4 (06:38→21:36)
[2022-11-06] MEDS: Cefepime 2 GM in Sodium Chloride 0.9% 100 ML IVPB SCH ×2 (09:26→21:26)
[2022-11-06] MEDS: levETIRAcetam 500 MG TAB PO SCH ×2 (09:26→21:26)
[2022-11-06] MEDS: DULoxetine 30 MG CAP PO SCH (09:26)
[2022-11-06] MEDS: Lisinopril 20 MG TAB PO SCH (09:26)
[2022-11-06] MEDS: Fluconazole 100 MG TAB PO SCH (09:26)
[2022-11-06] MEDS: Furosemide 40 MG TAB PO SCH (09:26)
[2022-11-06] MEDS: Insulin Glargine 30 UNITS/0.3 ML VIAL SC SCH ×2 (09:27→21:34)
[2022-11-06] MEDS: Famotidine 20 MG TAB PO SCH ×2 (09:27→21:27)
[2022-11-06] MEDS: Polyethylene Glycol 3350 17 GM Packet PO SCH (09:27)
[2022-11-06] MEDS: Acetaminophen 325 MG TAB PO PRN (18:12)
[2022-11-06] MEDS: Atorvastatin Calcium 20 MG TAB PO SCH (21:26)
[2022-11-07 04:53] LABS: #Basophils 0.1 thou/uL (0.0-0.2); #Eosinphils 0.3 thou/uL (0.0-0.7); #Monocytes 1.2 thou/uL (0.11-0.59); #Neutrophils 7.3 thou/uL (1.40-6.50); %Basophils 0.5 % (0.0-1.0); %Eosinophils 2.3 % (0.0-10.0); %Lymphocytes 19.1 % (21.0-51.0); %Monocytes 10.4 % (0.0-10.0); %Neutrophils 66.3 % (42.0-75.0); Hematocrit 42.4 % (36.0-47.0); Hemoglobin 13.8 g/dL (12.0-16.0); Mean Corpuscular HGB CONC 32.5 g/dL (32.0-36.0); Mean Corpuscular Hemoglobin 28.2 pg (27.0-31.0); Mean Corpuscular Volume 86.7 fl (78.0-98.0); Mean Platelet Volume 10.1 fL (7.4-10.4); Platelet Count 213 10x3/uL (130-400); RBC Distribution Width 14.4 % (11.5-14.5); Red Blood Cell (RBC) Count 4.89 mill/uL (4.20-5.40)
[2022-11-07 05:12] LABS: Anion Gap 9 mmol/L (10-20); BUN (Urea Nitrogen) 9 mg/dL (9.8-20.1); Calc. Creatinine Clearance 161 mL/min (70-130); Calcium 9.7 mg/dL (7.8-10.44); Carbon Dioxide 25 mmol/L (22-29); Chloride 101 mmol/L (98-107); Estimated GFR 82; Glucose 169 mg/dL (70-105); Potassium 3.3 mmol/L (3.5-5.1); Sodium 132 mmol/L (136-145)
[2022-11-07] MEDS: Insulin Regular 300 UNITS/3 ML VIAL SC PRN ×4 (06:00→21:31)
[2022-11-07] MEDS: Cefepime 2 GM in Sodium Chloride 0.9% 100 ML IVPB SCH ×2 (08:18→11:34)
[2022-11-07] MEDS: levETIRAcetam 500 MG TAB PO SCH ×2 (08:19→21:30)
[2022-11-07] MEDS: DULoxetine 30 MG CAP PO SCH (08:19)
[2022-11-07] MEDS: Furosemide 40 MG TAB PO SCH (08:20)
[2022-11-07] MEDS: Amlodipine 5 MG TAB PO SCH (08:20)
[2022-11-07] MEDS: Famotidine 20 MG TAB PO SCH ×2 (08:20→21:30)
[2022-11-07] MEDS: Lisinopril 20 MG TAB PO SCH (08:20)
[2022-11-07] MEDS: Fluconazole 100 MG TAB PO SCH (08:20)
[2022-11-07] MEDS: Insulin Glargine 30 UNITS/0.3 ML VIAL SC SCH ×2 (08:21→21:30)
[2022-11-07] MEDS ORDERED: Amlodipine 5 mg/Benazepril 20 mg CAP PO SCH (09:00)
[2022-11-07] MEDS: Polyethylene Glycol 3350 17 GM Packet PO SCH (10:28)
[2022-11-07] MEDS: Atorvastatin Calcium 20 MG TAB PO SCH (21:30)
[2022-11-07] MEDS: Acetaminophen 325 MG TAB PO PRN (21:32)
[2022-11-08] MEDS: Insulin Regular 300 UNITS/3 ML VIAL SC PRN ×3 (05:48→16:45)
[2022-11-08 08:44] LABS: #Basophils 0.1 thou/uL (0.0-0.2); #Eosinphils 0.3 thou/uL (0.0-0.7); #Neutrophils 8.5 thou/uL (1.40-6.50); %Basophils 0.6 % (0.0-1.0); %Eosinophils 2.5 % (0.0-10.0); %Lymphocytes 17.8 % (21.0-51.0); %Monocytes 8.1 % (0.0-10.0); %Neutrophils 69.2 % (42.0-75.0); Hematocrit 44.9 % (36.0-47.0); Hemoglobin 14.3 g/dL (12.0-16.0); Mean Corpuscular HGB CONC 31.8 g/dL (32.0-36.0); Mean Corpuscular Hemoglobin 27.8 pg (27.0-31.0); Mean Corpuscular Volume 87.4 fl (78.0-98.0); Mean Platelet Volume 9.7 fL (7.4-10.4); Platelet Count 250 10x3/uL (130-400); RBC Distribution Width 14.4 % (11.5-14.5); Red Blood Cell (RBC) Count 5.14 mill/uL (4.20-5.40); White Blood Cell (WBC) Count 12.3 10x3/uL (4.8-10.8)
[2022-11-08] MEDS: DULoxetine 30 MG CAP PO SCH (08:53)
[2022-11-08] MEDS: Amlodipine 5 MG TAB PO SCH (08:53)
[2022-11-08] MEDS: Lisinopril 20 MG TAB PO SCH (08:53)
[2022-11-08] MEDS: Insulin Glargine 30 UNITS/0.3 ML VIAL SC SCH (08:53)
[2022-11-08] MEDS: Fluconazole 100 MG TAB PO SCH (08:54)
[2022-11-08] MEDS: Furosemide 40 MG TAB PO SCH (08:54)
[2022-11-08] MEDS: Famotidine 20 MG TAB PO SCH (08:54)
[2022-11-08] MEDS: levETIRAcetam 500 MG TAB PO SCH (08:54)
[2022-11-08] MEDS: Polyethylene Glycol 3350 17 GM Packet PO SCH (08:55)
[2022-11-08 09:04] LABS: Anion Gap 12 mmol/L (10-20); BUN (Urea Nitrogen) 11 mg/dL (9.8-20.1); Calc. Creatinine Clearance 151 mL/min (70-130); Calcium 9.8 mg/dL (7.8-10.44); Carbon Dioxide 24 mmol/L (22-29); Chloride 101 mmol/L (98-107); Estimated GFR 76; Glucose 202 mg/dL (70-105); Sodium 133 mmol/L (136-145)
[2022-11-08 16:48] VITALS: BP 135/82; TEMP 98
== END 2022-11-08 17:28 | DRG 872 ==
LOC: ERS 02:12 → 2NO 06:13 → T4-B 11-07 10:43
PROVIDERS: ADMIT Student in an Organized Health Care Education/Training Program; ATTEND Internal Medicine
PROC: 0T9B70Z Drainage of Bladder with Drainage Device, Via Natural or Artificial Opening (ICD-10-PCS; principal; 2022-11-04)
PROC: 3E03329 Introduction of Other Anti-infective into Peripheral Vein, Percutaneous Approach (ICD-10-PCS; 2022-11-04)
DX: A41.9 Sepsis, unspecified organism (principal); L97.419 Non-pressure chronic ulcer of right heel and midfoot with unspecified severity; I69.951 Hemiplegia and hemiparesis following unspecified cerebrovascular disease affecting right dominant side; L03.115 Cellulitis of right lower limb; B37.49 Other urogenital candidiasis; E11.22 Type 2 diabetes mellitus with diabetic chronic kidney disease; N18.9 Chronic kidney disease, unspecified; Z20.822 Contact with and (suspected) exposure to COVID-19; E11.621 Type 2 diabetes mellitus with foot ulcer; K21.9 Gastro-esophageal reflux disease without esophagitis; Z79.899 Other long term (current) drug therapy; Z79.84 Long term (current) use of oral hypoglycemic drugs; Z79.82 Long term (current) use of aspirin; I12.9 Hypertensive chronic kidney disease with stage 1 through stage 4 chronic kidney disease, or unspecified chronic kidney disease; F32.9 Major depressive disorder, single episode, unspecified; E78.5 Hyperlipidemia, unspecified; G40.909 Epilepsy, unspecified, not intractable, without status epilepticus; F01.50 Vascular dementia, unspecified severity, without behavioral disturbance, psychotic disturbance, mood disturbance, and anxiety
CPT/HCPCS: 36415; 36416; 51701; 71045; 80048; 80053; 81001; 83605; 83880; 84484; 85025; 87040; 87086; 93005; 94760; 96365; 96366; 96367; J0692; J1815; J3370; J3370-JW; J3490; J7050; U0002